=== PATIENT | male | born 1975 | race Caucasian/White ===

== ENCOUNTER 2018-09-29 21:56 | Emergency (ER) | payer SELFPAY ==
[2018-09-29 21:57] VITALS: BP 136/114
--- NOTE | 2018-09-29 21:59 | ER Report ---
History and Physical Time Seen By MD: 21:54 HPI/ROS CHIEF COMPLAINT: Correction clearance HISTORY OF PRESENT ILLNESS: 43-year-old male brought in by police for assisted clearance. Patient appears grossly on-call intoxicated, he voices no injuries or complaints. Patient denies significant past medical history. REVIEW OF SYSTEMS: Respiratory: No cough, no dyspnea. Cardiovascular: No chest pain, no palpitations. Gastrointestinal: No vomiting, no abdominal pain. Musculoskeletal: No back pain. Allergies: Coded Allergies: No Known Drug Allergies (Unverified , 09/29/18) Home Meds Unable to Obtain Active Prescriptions or Reported Meds Reviewed Nurses Notes: Yes Old Medical Records Reviewed: Yes Constitutional Vital Sign - Last 24 Hours 09/29/18 21:57 Pulse 133 Resp 18 B/P (MAP) 136/114 Pulse Ox 94 O2 Delivery Room Air Physical Exam General Appearance: The patient is alert, has no immediate need for airway protection and no current signs of toxicity.. Palpation of the head and neck reveal no tenderness or trauma HEENT: Pupils equal and round no injection. Oropharynx without dental trauma Respiratory: Chest is non tender, lungs are clear to auscultation. No chest wall tenderness Cardiac: regular rate and rhythm Gastrointestinal: Abdomen is soft and non tender, no masses, bowel sounds normal. Musculoskeletal: Neck: Neck is supple and non tender. Extremities have full range of motion and are non tender. No evidence of trauma Skin: No rashes or lesions. DIFFERENTIAL DIAGNOSIS: After history and physical exam differential diagnosis was considered for assisted clearance, polysubstance abuse, alcohol intoxication Medical Decision Making ED Course/Re-evaluation ED Course Patient was admitted to an examination room. H&P was done. The differential diagnoses was considered. On clinical examination. Patient has no complaints. His vital signs are stable except for mild tachycardia. On clinical examination, there are no findings. He is medical cleared for assisted admission. Decision to Disposition Date: Sep 29, 2018 Decision to Disposition Time: 21:58 Depart Departure Latest Vital Signs Vital Signs Date Time Temp Pulse Resp B/P (MAP) Pulse Ox O2 Delivery O2 Flow Rate FiO2 09/29/18 21:57 133 18 136/114 94 Room Air Impression: Primary Impression: Medical clearance for incarceration Additional Impression: Alcohol intoxication Condition: Improved Disposition: HOME OR SELF-CARE New Scripts Unable to Obtain Active Prescriptions or Reported Meds Patient Instructions: Alcohol Intoxication (ED) Additional Instructions: Medical cleared for assisted admission Problem Qualifiers Additional Impression: Alcohol intoxication Complication of substance-induced condition: uncomplicated Qualified Codes: F10.920 - Alcohol use, unspecified with intoxication, uncomplicated VIRI GALLOWAY DO Sep 29, 2018 21:59
== END 2018-09-29 22:11 ==
LOC: ER 22:00
DX: F10.920 Alcohol use, unspecified with intoxication, uncomplicated (principal)
CPT/HCPCS: 99281